=== PATIENT | female | born 1985 | race Hispanic/Latino ===

== ENCOUNTER 2018-10-08 13:14 | Emergency (ER) | payer SELFPAY ==
[2018-10-08] MEDS ORDERED: NA CHLORIDE 0.9% 1,000 ML ONE (14:03)
[2018-10-08] MEDS ORDERED: FAMOTIDINE 20 MG/2 ML VIAL IV ONE (14:03)
[2018-10-08] MEDS ORDERED: PROMETHAZINE 25 MG/ML VIAL ONE (14:03)
[2018-10-08 14:08] LABS: Absolute Lymphocytes (CBC) 1.1 K/uL (0.7-4.9); Absolute Monocytes 0.9 K/uL (0.1-1.3); Absolute Neutrophil 6.6 K/uL (1.8-8.0); Basophils % 0.4 % (0-1.3); Eosinophils % 0.3 % (0-4.4); Hematocrit 40.1 % (36.0-45.0); Lymphocytes % 12.5 % (15.3-44.8); MPV 8.4 fL (7.6-11.3); RBC Red Blood Cell Count 4.01 M/uL (3.86-4.86)
[2018-10-08 14:48] LABS: ALT/SGPT 22 U/L (12-78); AST/SGOT 13 U/L (15-37); Albumin 4.2 g/dL (3.4-5.0); Alkaline Phosphatase 72 U/L (45-117); BUN Blood Urea Nitrogen 16 mg/dL (7-18); Bicarbonate 19 mmol/L (21-32); Bilirubin Direct 0.2 mg/dL (0-0.2); Bilirubin Total 0.7 mg/dL (0.2-1.0); Glucose Level 88 mg/dL (74-106); HCG, Quantitative 23391 mIU/mL (1-3); Lipase 117 U/L (73-393); Potassium 3.4 mmol/L (3.5-5.1); Protein, Total 8.2 g/dL (6.4-8.2); Sodium Level 138 mmol/L (136-145)
[2018-10-08 15:06] LABS: Urine Blood 1+ (NEG); Urine Glucose NEGATIVE (NEG); Urine Protein 2+ (NEG); Urine Specific Gravity 1.025 (1.005-1.030)
--- NOTE | 2018-10-08 16:26 | ER ---
Nurse's Notes [facility] Name: Elva Rogers Age: 33 yrs Sex: Female : 1985 Arrival Date: 10/08/2018 Time: 13:17 Bed 16 Private MD: Diagnosis: related conditions, unspecified, first trimester;Nausea and vomiting Presentation: 10/08 13:25 Presenting complaint: N/V x 3 days. Not tolerating fluids. Denies fever/diarrhea/pain. hb Transition of care: patient was not received from another setting of care. Onset of symptoms was October 05, 2018. Risk Assessment: Do you want to hurt yourself or someone else? Patient reports no desire to harm self or others. Care prior to arrival: None. 13:25 Method Of Arrival: Ambulatory hb 13:25 Acuity: JOSHUA 3 hb 13:32 Initial Sepsis Screen: Does the patient meet any 2 criteria? No. Patient's initial tw2 sepsis screen is negative. Does the patient have a suspected source of infection? No. Patient's initial sepsis screen is negative. Triage Assessment: 13:32 General: Appears Behavior is. GI: Reports nausea. 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 - Social history:: Smoking status: Patient/guardian denies using tobacco. - Ebola Screening: : No symptoms or risks identified at this time. Screenin:33 Abuse screen: Denies threats or abuse. Nutritional screening: No deficits noted. tw2 Tuberculosis screening: No symptoms or risk factors identified. Fall Risk None identified. Assessment: 13:28 General: Appears in no apparent distress. slender, well groomed, Behavior is calm, tw2 cooperative, appropriate for age. Pain: Denies pain. Neuro: Level of Consciousness is awake, alert, obeys commands, Oriented to person, place, time, situation. Cardiovascular: Heart tones S1 S2 Patient's skin is warm and dry. Respiratory: Airway is patent Respiratory effort is even, unlabored, Respiratory pattern is regular, symmetrical, Breath sounds are clear bilaterally. GI: Abdomen is flat, Bowel sounds present X 4 quads. Reports nausea. : No signs and/or symptoms were reported regarding the genitourinary system. EENT: No signs and/or symptoms were reported regarding the EENT system. Derm: Skin is intact, is healthy with good turgor, Skin is dry, Skin temperature is warm. Musculoskeletal: Range of motion:. 14:46 Reassessment: Patient appears in no apparent distress at this time. No changes from tw2 previously documented assessment. Patient and/or family updated on plan of care and expected duration. Pain level reassessed. Patient is alert, oriented x 3, equal unlabored respirations, skin warm/dry/pink. 16:22 Reassessment: Patient appears in no apparent distress at this time. No changes from tw2 previously documented assessment. Patient and/or family updated on plan of care and expected duration. Pain level reassessed. Patient is alert, oriented x 3, equal unlabored respirations, skin warm/dry/pink. 16:41 Reassessment: Patient appears in no apparent distress at this time. pt tolerated po tw2 challenge at this time. Vital Signs: 13:26 BP 152 / 92; Pulse 90; Resp 16; Temp 97.8; Pulse Ox 100% on R/A; Weight 63.5 kg; Height hb 5 ft. 2 in. (157.48 cm); Pain 0/10; 14:46 BP 109 / 76; Pulse 77; Resp 17; Pulse Ox 100% on R/A; tw2 15:56 BP 122 / 79; Pulse 82; Resp 17; Pulse Ox 95% on R/A; tw2 16:22 BP 115 / 74; Pulse 72; Resp 17; Pulse Ox 100% on R/A; tw2 13:26 Body Mass Index 25.61 (63.50 kg, 157.48 cm) hb ED Course: 13:17 Patient arrived in ED. mr 13:26 Triage completed. hb 13:26 Arm band placed on. hb 13:28 Ruben Little PA is PHCP. cp 13:28 Shan Flores MD is Attending Physician. cp 13:31 Arellano, Misti, RN is Primary Nurse. tw2 13:33 Bed in low position. Call light in reach. tw2 13:36 Urine collected: clean catch specimen, cloudy, javon colored. jb1 13:56 Initial lab(s) drawn, by me, sent to lab. Inserted saline lock: 22 gauge in left jb1 antecubital area, using aseptic technique. Blood collected. 16:03 US Transvaginal Ob In Process Unspecified. EDMS 16:41 No provider procedures requiring assistance completed. IV discontinued, intact, tw2 bleeding controlled, No redness/swelling at site. Pressure dressing applied. Administered Medications: 13:55 Drug: NS 0.9% 1000 ml Route: IV; Rate: 1 bolus; Site: left antecubital; tw2 16:00 Follow up: Response: No adverse reaction; IV Status: Completed infusion; IV Intake: tw2 1000ml 13:55 Drug: Phenergan 25 mg Route: IVP; Site: left antecubital; tw2 16:00 Follow up: Response: No adverse reaction; Nausea is decreased tw2 13:59 Drug: Pepcid 20 mg Route: IVP; Site: left antecubital; tw2 16:17 Follow up: Response: No adverse reaction tw2 Intake: 16:00 IV: 1000ml; Total: 1000ml. tw2 Outcome: 16:26 Discharge ordered by MD. cp 16:41 Discharged to home ambulatory, with significant other. tw2 16:41 Condition: stable 16:41 Discharge instructions given to patient, significant other, Instructed on discharge instructions, follow up and referral plans. medication usage, Demonstrated understanding of instructions, follow-up care, medications, Prescriptions given X 3. 16:42 Patient left the ED. tw2 Signatures: Dispatcher [employer] EDMS Darwin Basurto jb1 Lisa Cordero Ruben Little PA PA cp Baxter, Heather, RN RN hb Wise, Tara, RN RN tw2 Corrections: (The following items were deleted from the chart) 13:27 13:27 PSHx: None; hb hb 16:22 15:56 BP 161 / 90; Pulse 95bpm; Resp 17bpm; Pulse Ox 95% RA; tw2 tw2
--- NOTE | 2018-10-08 16:27 | EDPHYS ---
Physician Documentation [facility] Name: Elva Rogers Age: 33 yrs Sex: Female : 1985 Arrival Date: 10/08/2018 Time: 13:17 Bed 16 Private MD: ED Physician Shan Flores HPI: 10/08 13:35 This 33 yrs old Female presents to ER via Ambulatory with complaints of cp Vomiting. 13:35 The patient presents to the emergency department with nausea, that is moderate, cp vomiting, that is intermittent. 13:35 Onset: The symptoms/episode began/occurred 3 day(s) ago. Possible causes: unknown. cp Associated signs and symptoms: Pertinent negatives: abdominal pain, constipation, diarrhea, fever, GI bleeding, vaginal discharge. Severity of symptoms: in the emergency department the symptoms are unchanged despite home interventions. The patient has experienced similar episodes in the past, when . 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 - Social history:: Smoking status: Patient/guardian denies using tobacco. - Ebola Screening: : No symptoms or risks identified at this time. ROS: 13:45 Constitutional: Positive for poor PO intake, Negative for body aches, chills, fever. cp 13:45 Eyes: Negative for injury, pain, redness, and discharge. cp 13:45 ENT: Negative for drainage from ear(s), ear pain, sore throat, difficulty swallowing, difficulty handling secretions. 13:45 Neck: Negative for pain with movement, pain at rest, stiffness, tenderness. 13:45 Cardiovascular: Negative for chest pain, palpitations. 13:45 Respiratory: Negative for cough, shortness of breath, wheezing. 13:45 Abdomen/GI: Positive for nausea and vomiting, anorexia, Negative for abdominal pain, diarrhea, constipation, black/tarry stool, rectal bleeding. 13:45 Back: Negative for pain at rest, pain with movement. 13:45 : Negative for urinary symptoms, pelvic pain, flank pain, vaginal bleeding, vaginal discharge. 13:45 Skin: Negative for rash. 13:45 Neuro: Negative for altered mental status, dizziness, headache, weakness. 13:45 All other systems are negative. Exam: 13:48 Constitutional: The patient appears in no acute distress, alert, awake, non-toxic, well cp developed, well nourished. 13:48 Head/Face: Normocephalic, atraumatic. cp 13:48 Eyes: Periorbital structures: appear normal, Pupils: equal, round, and reactive to light and accomodation, Extraocular movements: intact throughout, Conjunctiva: normal, no exudate, no injection, Sclera: no appreciated abnormality, Lids and lashes: appear normal, bilaterally. 13:48 ENT: External ear(s): are unremarkable, Nose: is normal, Mouth: Lips: dry, Oral mucosa: pink and intact, moist, Posterior pharynx: Airway: no evidence of obstruction, patent, Tonsils: are normal in appearance, swelling, is not appreciated, erythema, is not appreciated, exudate, is not appreciated, Voice: is normal. 13:48 Neck: ROM/movement: is normal, is supple, without pain, no range of motions limitations, no meningismus, no nuchal rigidity. 13:48 Chest/axilla: Inspection: normal, Palpation: is normal, no crepitus, no tenderness. 13:48 Cardiovascular: Rate: normal, Rhythm: regular. 13:48 Respiratory: the patient does not display signs of respiratory distress, Respirations: normal, no use of accessory muscles, no retractions, no splinting, no tachypnea, labored breathing, is not present, Breath sounds: are clear throughout, no decreased breath sounds, no stridor, no wheezing. 13:48 Abdomen/GI: Inspection: abdomen appears normal, Bowel sounds: active, all quadrants, Palpation: abdomen is soft and non-tender, in all quadrants, rebound tenderness, is not appreciated, voluntary guarding, is not appreciated, involuntary guarding, is not appreciated. 13:48 Back: pain, is absent, ROM is normal. 13:48 Skin: no rash present. 13:48 Neuro: Orientation: to person, place \T\ time. Mentation: is normal, Cerebellar function: is grossly normal, Motor: moves all fours, strength is normal, Sensation: is normal. Vital Signs: 13:26 BP 152 / 92; Pulse 90; Resp 16; Temp 97.8; Pulse Ox 100% on R/A; Weight 63.5 kg; Height hb 5 ft. 2 in. (157.48 cm); Pain 0/10; 14:46 BP 109 / 76; Pulse 77; Resp 17; Pulse Ox 100% on R/A; tw2 15:56 BP 122 / 79; Pulse 82; Resp 17; Pulse Ox 95% on R/A; tw2 16:22 BP 115 / 74; Pulse 72; Resp 17; Pulse Ox 100% on R/A; tw2 13:26 Body Mass Index 25.61 (63.50 kg, 157.48 cm) hb MDM: 13:33 Patient medically screened. cp 14:00 Differential diagnosis: gastritis, cholecystitis, appendicitis, viral gastroenteritis, cp gastroenteritis, . 16:25 Data reviewed: vital signs, nurses notes, lab test result(s), radiologic studies, cp ultrasound. 16:25 Counseling: I had a detailed discussion with the patient and/or guardian regarding: the cp historical points, exam findings, and any diagnostic results supporting the discharge/admit diagnosis, lab results, radiology results, the need for outpatient follow up, an OB/Gyne specialist, to return to the emergency department if symptoms worsen or persist or if there are any questions or concerns that arise at home. Response to treatment: the patient's symptoms have markedly improved after treatment, Nausea markedly improved and vomiting resolved. Will discharge to home for continued monitoring. 10/08 13:43 Order name: Quantitative Hcg; Complete Time: 14:49 cp 10/08 15:22 Interpretation: Abnormal: HCGQ 22821. cp 10/08 13:43 Order name: Abo/rh Typing; Complete Time: 14:49 cp 10/08 13:43 Order name: Basic Metabolic Panel; Complete Time: 14:49 cp 10/08 15:21 Interpretation: Normal except: K 3.4; CL 108; CO2 19. cp 10/08 13:43 Order name: CBC with Diff; Complete Time: 14:49 cp 10/08 15:21 Interpretation: Normal except: MCH 35.1; ANNMARIE% 76.8; LYM% 12.5. cp 10/08 13:43 Order name: Lipase; Complete Time: 14:49 cp 10/08 13:43 Order name: LFT's; Complete Time: 14:49 cp 10/08 13:35 Order name: Urine Test (obtain specimen); Complete Time: 13:36 cp 10/08 13:35 Order name: Urine Dipstick-Ancillary (obtain specimen); Complete Time: 13:36 cp 10/08 13:47 Order name: Urine Dipstick--Ancillary (enter results); Complete Time: 15:21 ag 10/08 15:21 Interpretation: Normal except: UKET 4+; UBLD 1+; UPROT 2+. cp 10/08 13:47 Order name: Urine --Ancillary (enter results); Complete Time: 15:21 ag 10/08 14:50 Order name: US Transvaginal Ob; Complete Time: 16:39 cp 10/08 13:43 Order name: IV Saline Lock; Complete Time: 13:57 cp 10/08 13:43 Order name: Labs collected and sent; Complete Time: 13:57 cp 10/08 13:43 Order name: NPO; Complete Time: 13:45 cp 10/08 16:14 Order name: PO challenge; Complete Time: 16:40 cp Administered Medications: 13:55 Drug: NS 0.9% 1000 ml Route: IV; Rate: 1 bolus; Site: left antecubital; tw2 16:00 Follow up: Response: No adverse reaction; IV Status: Completed infusion; IV Intake: tw2 1000ml 13:55 Drug: Phenergan 25 mg Route: IVP; Site: left antecubital; tw2 16:00 Follow up: Response: No adverse reaction; Nausea is decreased tw2 13:59 Drug: Pepcid 20 mg Route: IVP; Site: left antecubital; tw2 16:17 Follow up: Response: No adverse reaction tw2 Disposition: 18:35 Co-signature as Attending Physician, Shan Flores MD. rn Disposition: 10/08/18 16:26 Discharged to Home. Impression: related conditions, unspecified, first trimester, Nausea and vomiting. - Condition is Stable. - Discharge Instructions: Dehydration, Adult, Nausea and Vomiting, Adult, First Trimester of . - Prescriptions for Pepcid 20 mg Oral Tablet - take 1 tablet by ORAL route every 12 hours for 10 days; 20 tablet. Phenergan 25 mg Rectal Suppository - insert 1 suppository by RECTAL route every 6 hours As needed; 12 suppository. promethazine 25 mg Oral Tablet - take 1 tablet by ORAL route every 6 hours As needed; 20 tablet. - Medication Reconciliation Form, Thank You Letter, Antibiotic Education, Prescription Opioid Use form. - Follow up: Private Physician; When: 1 - 2 days; Reason: Recheck today's complaints. - Problem is new. - Symptoms have improved. Signatures: Dispatcher [employer] EDMS Shan Flores MD MD rn Ruben Little PA PA cp Kathy Davis RN RN Misti Arellano RN RN tw2 Corrections: (The following items were deleted from the chart) 13:27 13:27 PSHx: None; hb hb 16:42 16:26 10/08/2018 16:26 Discharged to Home. Impression: related conditions, tw2 unspecified, first trimester; Nausea and vomiting. Condition is Stable. Forms are Medication Reconciliation Form, Thank You Letter, Antibiotic Education, Prescription Opioid Use. Follow up: Private Physician; When: 1 - 2 days; Reason: Recheck today's complaints. Problem is new. Symptoms have improved. cp
--- NOTE | 2018-10-08 16:34 | RAD REPORT ---
EXAM DESCRIPTION: US - Transvaginal OB - 10/08/2018 4:03 pm CLINICAL HISTORY: , nausea and vomiting COMPARISON: None. TECHNIQUE: Endovaginal sonography performed. FINDINGS: Normal shaped intrauterine gestational sac seen in the fundal portion of the endometrial c avity. Yolk sac and pole are identifiable. Heart rate is 110 BPM. No hematoma or other abnormal ity in the endometrial cavity. Both ovaries are identified and show normal blood flow pattern. No adn exal mass. No blood or fluid in the cul de sac. Mesick-rump length and gestational sac measurements yield a 6 week 1 day age. Calculated JOSE LUIS is 2019. IMPRESSION: Single 6 week 1 day IUP. Heart rate is 110 BPM. No intrauterine or adnexal suspicious finding.
== END 2018-10-08 16:42 | disposition home or self-care (01) ==
LOC: ER 13:14
DX: O21.0 Mild hyperemesis gravidarum (principal); Z3A.01 Less than 8 weeks gestation of pregnancy
CPT/HCPCS: 36415; 76817; 80048; 80076; 81003; 81025; 83690; 84702; 85025; 86900; 86901; 96361; 96374; 96375; 99284; J2550; J7030

== ENCOUNTER 2018-10-15 12:21 | Emergency (ER) | payer SELFPAY ==
[2018-10-15 13:44] LABS: Urine Blood TRACE (NEG); Urine Glucose TRACE (NEG); Urine Protein 2+ (NEG); Urine Specific Gravity 1.025 (1.005-1.030); Urine pH 6.5 (5.0-7.0)
[2018-10-15] MEDS ORDERED: PROMETHAZINE 25 MG/ML VIAL ONE (13:47)
[2018-10-15] MEDS ORDERED: NA CHLORIDE 0.9% 1,000 ML ONE (13:48)
[2018-10-15 14:10] LABS: Absolute Lymphocytes (CBC) 1.6 K/uL (0.7-4.9); Absolute Monocytes 0.7 K/uL (0.1-1.3); Absolute Neutrophil 9.2 K/uL (1.8-8.0); Basophils % 0.2 % (0-1.3); Eosinophils % 0.4 % (0-4.4); Hematocrit 38.4 % (36.0-45.0); Lymphocytes % 14.2 % (15.3-44.8); MPV 8.1 fL (7.6-11.3); Monocytes % 5.8 % (3.3-12.3); RBC Red Blood Cell Count 3.82 M/uL (3.86-4.86)
[2018-10-15 14:19] LABS: BUN Blood Urea Nitrogen 10 mg/dL (7-18); Bicarbonate 25 mmol/L (21-32); Glucose Level 90 mg/dL (74-106); Potassium 3.8 mmol/L (3.5-5.1); Sodium Level 138 mmol/L (136-145)
--- NOTE | 2018-10-15 14:34 | EDPHYS ---
Physician Documentation [facility] Name: Elva Rogers Age: 33 yrs Sex: Female : 1985 Arrival Date: 10/15/2018 Time: 12:22 Bed 14 Private MD: ED Physician Davidson Jennings HPI: 10/15 13:29 This 33 yrs old Female presents to ER via Ambulatory with complaints of jr8 Vomiting - 7 wks preg. 13:29 The patient presents to the emergency department with nausea, vomiting. Onset: The jr8 symptoms/episode began/occurred acutely, 2 week(s) ago. Possible causes: . The symptoms are aggravated by food , The symptoms are alleviated by nothing. Associated signs and symptoms: The patient has no apparent associated signs or symptoms. Severity of symptoms: At their worst the symptoms were moderate in the emergency department the symptoms are unchanged. The patient has experienced similar episodes in the past, a few times. The patient has not recently seen a physician. History of vomiting related pregnancies in the past. Stated that she is approximately 7 weeks and started to vomit about two weeks ago. Has not been able to hold down food or water. Denies abdominal pain, pelvic pain, vaginal bleeding, or urinary symptoms . 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 - Social history:: Smoking status: Patient/guardian denies using tobacco. - Ebola Screening: : No symptoms or risks identified at this time. ROS: 13:29 Eyes: Negative for injury, pain, redness, and discharge, ENT: Negative for injury, jr8 pain, and discharge, Neck: Negative for injury, pain, and swelling, Cardiovascular: Negative for chest pain, palpitations, and edema, Respiratory: Negative for shortness of breath, cough, wheezing, and pleuritic chest pain, Back: Negative for injury and pain, MS/Extremity: Negative for injury and deformity, Skin: Negative for injury, rash, and discoloration, Neuro: Negative for headache, weakness, numbness, tingling, and seizure. 13:29 Abdomen/GI: Positive for nausea and vomiting, Negative for abdominal pain, diarrhea, constipation, abdominal cramps, abdominal distension, anorexia, dysphagia, hematemesis, black/tarry stool, rectal pain, rectal bleeding, bowel incontinence, flatulence. Exam: 13:29 Eyes: Pupils equal round and reactive to light, extra-ocular motions intact. Lids and jr8 lashes normal. Conjunctiva and sclera are non-icteric and not injected. Cornea within normal limits. Periorbital areas with no swelling, redness, or edema. ENT: Nares patent. No nasal discharge, no septal abnormalities noted. Tympanic membranes are normal and external auditory canals are clear. Oropharynx with no redness, swelling, or masses, exudates, or evidence of obstruction, uvula midline. Mucous membranes moist. Neck: Trachea midline, no thyromegaly or masses palpated, and no cervical lymphadenopathy. Supple, full range of motion without nuchal rigidity, or vertebral point tenderness. No Meningismus. Cardiovascular: Regular rate and rhythm with a normal S1 and S2. No gallops, murmurs, or rubs. Normal PMI, no JVD. No pulse deficits. Respiratory: Lungs have equal breath sounds bilaterally, clear to auscultation and percussion. No rales, rhonchi or wheezes noted. No increased work of breathing, no retractions or nasal flaring. Abdomen/GI: Soft, non-tender, with normal bowel sounds. No distension or tympany. No guarding or rebound. No evidence of tenderness throughout. Back: No spinal tenderness. No costovertebral tenderness. Full range of motion. Skin: Warm, dry with normal turgor. Normal color with no rashes, no lesions, and no evidence of cellulitis. MS/ Extremity: Pulses equal, no cyanosis. Neurovascular intact. Full, normal range of motion. Neuro: Awake and alert, GCS 15, oriented to person, place, time, and situation. Cranial nerves II-XII grossly intact. Motor strength 5/5 in all extremities. Sensory grossly intact. Cerebellar exam normal. Normal gait. Vital Signs: 12:50 BP 108 / 85; Pulse 85; Resp 16; Temp 98.6; Pulse Ox 98% on R/A; Weight 65.77 kg; Height la1 5 ft. 2 in. (157.48 cm); 13:52 BP 122 / 99; Pulse 76; Resp 15; Temp 98.4(TE); Pulse Ox 100% on R/A; mh5 14:30 BP 111 / 78; Pulse 81; Resp 16 S; Pulse Ox 100% on R/A; ca1 12:50 Body Mass Index 26.52 (65.77 kg, 157.48 cm) la1 MDM: 13:09 Patient medically screened. [facility] 14:33 Data reviewed: vital signs, nurses notes, lab test result(s), and as a result, I will jr8 discharge patient. Data interpreted: Pulse oximetry: on room air is 100 %. Interpretation: normal. Counseling: I had a detailed discussion with the patient and/or guardian regarding: the historical points, exam findings, and any diagnostic results supporting the discharge/admit diagnosis, lab results, the need for outpatient follow up, an OB/Gyne specialist, to return to the emergency department if symptoms worsen or persist or if there are any questions or concerns that arise at home. Response to treatment: the patient's symptoms have markedly improved after treatment, patient is well hydrated. 10/15 13:15 Order name: CBC with Diff [facility] 10/15 13:15 Order name: Basic Metabolic Panel; Complete Time: 14:32 [facility] 10/15 13:16 Order name: CBC with Automated Diff; Complete Time: 14:32 EDMS 10/15 13:16 Order name: Urine Dipstick--Ancillary (enter results); Complete Time: 13:46 10/15 13:16 Order name: Urine --Ancillary (enter results); Complete Time: 13:46 10/15 13:15 Order name: Urine Test (obtain specimen); Complete Time: 13:47 [facility] 10/15 13:15 Order name: Urine Dipstick-Ancillary (obtain specimen); Complete Time: 13:47 [facility] 10/15 13:15 Order name: IV; Complete Time: 13:47 [facility] Administered Medications: 13:41 Drug: NS 0.9% 1000 ml Route: IV; Rate: 1000 ml; Site: right antecubital; ca1 14:51 Follow up: Response: No adverse reaction; IV Status: Completed infusion ca1 13:41 Drug: Phenergan 12.5 mg Route: IVP; Site: right antecubital; ca1 14:51 Follow up: Response: No adverse reaction; Nausea is decreased ca1 Disposition: 15:22 Co-signature as Attending Physician, Davidson Jennings MD. Disposition: 10/15/18 14:34 Discharged to Home. Impression: Vomiting of , unspecified. - Condition is Stable. - Discharge Instructions: Morning Sickness. - Prescriptions for Diclegis 10- 10 mg Oral tablet,delayed release (DR/EC) - take 2 tablet by ORAL route At bedtime; 60 tablet. promethazine 25 mg Rectal suppository - insert 1 suppository by RECTAL route every 6 hours As needed; 8 suppository. - Medication Reconciliation Form, Thank You Letter, Antibiotic Education, Prescription Opioid Use form. - Follow up: Private Physician; When: 2 - 3 days; Reason: Recheck today's complaints, Continuance of care, Re-evaluation by your physician. - Problem is new. - Symptoms have improved. Signatures: Dispatcher [employer] EDMS Alexander Montoya PA PA jr8 Kendall Flores RN RN la1 Davidson Jennings MD MD Acob, Jennifer RN RN ca1 Corrections: (The following items were deleted from the chart) 14:56 14:34 10/15/2018 14:34 Discharged to Home. Impression: Vomiting of , ca1 unspecified. Condition is Stable. Forms are Medication Reconciliation Form, Thank You Letter, Antibiotic Education, Prescription Opioid Use. Follow up: Private Physician; When: 2 - 3 days; Reason: Recheck today's complaints, Continuance of care, Re-evaluation by your physician. Problem is new. Symptoms have improved. jr8
--- NOTE | 2018-10-15 14:34 | ER ---
Nurse's Notes [facility] Name: Elva Rogers Age: 33 yrs Sex: Female : 1985 Arrival Date: 10/15/2018 Time: 12:22 Bed 14 Private MD: Diagnosis: Vomiting of , unspecified Presentation: 10/15 12:48 Presenting complaint: Patient states: I am about 7 wks and having a lot of la1 vomiting, this is my sixth and this happens in all of my pregnancies. I was here a week ago and given phenergan but its not helping. Pt reports diclegis helped last time. Transition of care: patient was not received from another setting of care. Onset of symptoms was October 15, 2018. Risk Assessment: Do you want to hurt yourself or someone else? Patient reports no desire to harm self or others. Initial Sepsis Screen: Does the patient meet any 2 criteria? No. Patient's initial sepsis screen is negative. Does the patient have a suspected source of infection? No. Patient's initial sepsis screen is negative. Care prior to arrival: None. 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 - Social history:: Smoking status: Patient/guardian denies using tobacco. - Ebola Screening: : No symptoms or risks identified at this time. Screenin:20 Abuse screen: Denies threats or abuse. Denies injuries from another. Nutritional ca1 screening: No deficits noted. Tuberculosis screening: No symptoms or risk factors identified. Fall Risk IV access (20 points). Assessment: 13:20 General: Appears in no apparent distress. comfortable, Behavior is calm, cooperative, ca1 appropriate for age. Pain: Denies pain. Neuro: Level of Consciousness is awake, alert, obeys commands, Oriented to person, place, time, situation. Cardiovascular: Heart tones S1 S2 present Capillary refill < 3 seconds Patient's skin is warm and dry. Respiratory: Airway is patent Respiratory effort is even, unlabored, Respiratory pattern is regular, symmetrical, Breath sounds are clear bilaterally. GI: Abdomen is round non-distended, Bowel sounds present X 4 quads. Abd is soft and non tender X 4 quads. Reports tolerance of fluids, tolerance of food, vomiting. : No deficits noted. No signs and/or symptoms were reported regarding the genitourinary system. EENT: No deficits noted. No signs and/or symptoms were reported regarding the EENT system. Derm: Skin is intact, is healthy with good turgor, Skin is pink, warm \T\ dry. Musculoskeletal: Circulation, motion, and sensation intact. Capillary refill < 3 seconds, Range of motion: intact in all extremities. 14:30 Reassessment: Patient appears in no apparent distress at this time. Patient and/or ca1 family updated on plan of care and expected duration. Pain level reassessed. Patient is alert, oriented x 3, equal unlabored respirations, skin warm/dry/pink. Patient states feeling better. Vital Signs: 12:50 BP 108 / 85; Pulse 85; Resp 16; Temp 98.6; Pulse Ox 98% on R/A; Weight 65.77 kg; Height la1 5 ft. 2 in. (157.48 cm); 13:52 BP 122 / 99; Pulse 76; Resp 15; Temp 98.4(TE); Pulse Ox 100% on R/A; mh5 14:30 BP 111 / 78; Pulse 81; Resp 16 S; Pulse Ox 100% on R/A; ca1 12:50 Body Mass Index 26.52 (65.77 kg, 157.48 cm) la1 ED Course: 12:22 Patient arrived in ED. as 12:49 Triage completed. la1 12:50 Arm band placed on left wrist. la1 13:09 Alexander Montoya PA is PHCP. jr8 13:09 Davidson Jennings MD is Attending Physician. jr8 13:11 Jennifer Ingram RN is Primary Nurse. ca1 13:20 Patient has correct armband on for positive identification. Placed in gown. Bed in low ca1 position. Call light in reach. Side rails up X 1. Pulse ox on. NIBP on. Warm blanket given. 13:40 No provider procedures requiring assistance completed. Inserted saline lock: 22 gauge ca1 in right antecubital area, using aseptic technique. Blood collected. 14:56 IV discontinued, intact, bleeding controlled, No redness/swelling at site. Pressure ca1 dressing applied. Administered Medications: 13:41 Drug: NS 0.9% 1000 ml Route: IV; Rate: 1000 ml; Site: right antecubital; ca1 14:51 Follow up: Response: No adverse reaction; IV Status: Completed infusion ca1 13:41 Drug: Phenergan 12.5 mg Route: IVP; Site: right antecubital; ca1 14:51 Follow up: Response: No adverse reaction; Nausea is decreased ca1 Outcome: 14:34 Discharge ordered by MD. nye 14:56 Discharged to home ambulatory, with significant other. ca1 14:56 Condition: stable 14:56 Instructed on discharge instructions, follow up and referral plans. medication usage, Demonstrated understanding of instructions, follow-up care, medications, Prescriptions given X 2. 14:56 Patient left the ED. ca1 Signatures: Sheree Bills Josh, PA PA jrKendall Steele RN RN la1 Tracy Bills [facility] Jennifer Ingram RN RN ca1
== END 2018-10-15 14:56 | disposition home or self-care (01) ==
LOC: ER 12:21
DX: O21.9 Vomiting of pregnancy, unspecified (principal); Z3A.01 Less than 8 weeks gestation of pregnancy
CPT/HCPCS: 36415; 80048; 81003; 81025; 85025; 96361; 96374; 99284; J2550; J7030